=== PATIENT | female | born 1975 | race Caucasian/White ===

== ENCOUNTER 2023-04-05 11:54 | Day surgery (SDC) | payer OTHER ==
[~2023-04-05] VITALS: Ht 157.5 cm; Wt 69.1 kg
[~2023-04-05 11:54] MED LIST: LATISSE3 ML TOP; LEVOTHYROXINE50 MC1 PO; MULTI VITAMIN1 EACH PO; OMEPRAZOLE20 MG PO; TRAMADOL HCL50 MG PO; VENTOLIN HFA18 GM INH; VITAMIN D250000 UNIT PO
[2023-04-05 12:16] VITALS: BP 134/56
[2023-04-05 14:36] VITALS: BP 121/72
--- NOTE | 2023-04-05 14:40 | NUR ---
04/05/23 1440 Amber Hayes PATIENT ARRIVES IN PACU AWAKE, ALERT AND TALKING. DR MCCOLLUM PRESENTS TO THE BEDSIDE AND PATIENT'S QUESTIONS ARE ANSWERED. DISCHARGE INSTRUCTIONS ARE VERBALLY REVIEWED. PATIENT SITS AT THE EDGE OF THE BED AND DENIES DIZZINESS. SHE IS GETTING DRESSED BEHIND THE CURTAIN.
--- NOTE | 2023-04-05 18:49 | OR ---
[facility] [address] [place], [place] [address] Signed DATE OF OPERATION: 04/05/2023 SURGEON: Sergio Mccollum MD PREOPERATIVE DIAGNOSES: 1. Substernal burning pain consistent with gastroesophageal reflux. 2. Spontaneous regurgitation. POSTOPERATIVE DIAGNOSES: Hiatal hernia with distal esophagitis. PROCEDURE: Esophagogastroduodenoscopy with biopsy. ANESTHESIA: Intravenous sedation; fentanyl 100 mcg and Versed 8 mg. INDICATION: This 47-year-old white woman is a patient of MARY Dillon. She has symptoms of substernal burning pain episodically. She is taking PPI medication, omeprazole. She has no hematemesis or actual dysphagia, though does have slow swallowing to bread and meat sometimes. She is admitted at this time to undergo upper endoscopy to better characterize the problem,. She understands the risk of bleeding, infection, and perforation. FINDINGS: Mild distal esophagitis was noted. Hiatal hernia was quite clearly obvious. The stomach and duodenum were normal. CLOtest was negative 15 minutes post procedure. DESCRIPTION OF PROCEDURE: The patient was brought to the endoscopy suite and placed in the lateral decubitus position, given intravenous sedation to the point of slurred speech and nystagmus. Full cardiopulmonary monitoring was maintained. She had undergone lidocaine hypopharyngeal anesthesia. Olympus video upper endoscope was passed in the hypopharynx. The vocal cords were normal. Scope was advanced into the esophagus without problem. Throughout its length, it was normal except in the distal portion where there was mild inflammatory change but no Alnier's epithelium, stricture or neoplasm. Scope was advanced to the stomach which was insufflated with air. Rugal folds were normal. There was a fair amount of salivary Electronically Signed By: SERGIO MCCOLLUM MD 04/05/23 1849 PATIENT NAME: SARABJIT VANN OPERATIVE REPORT DATE OF : 77 REPORT #: [id number] PHYSICIAN: SERGIO MCCOLLUM MD PCP: REN FLEMING PAC REPORT IS CONFIDENTIAL AND NOT TO BE RELEASED WITHOUT AUTHORIZATION [facility] [address] [place], [place] [address] Signed secretions. The antrum was normal as was the pylorus. The scope was passed into the duodenal which was normal. Biopsies were then taken of the duodenum. The scope was withdrawn and biopsies taken of the antrum for both SANTI and pathologic testing. Further withdrawal of scope in retroflexed position showed obvious hiatal hernia. The flap valve was easily effaced entirely. The scope was straightened and withdrawn and biopsies taken of the distal esophageal mucosa. Further withdrawal allowed for biopsies of mid esophagus. Scope was removed and the patient was taken to the recovery room in good condition. CONCLUDING DIAGNOSIS: Hiatal hernia with associated gastroesophageal reflux incompletely managed by reflux medication with associated spontaneous regurgitation. PLAN: Continue PPI medication at this time. We will organize for video esophagram to grossly distinguish dysmotility problems. She would be a candidate for anti-reflux surgery. We will see her back in the office after upper gastrointestinal imaging study is completed. MD MIKE Fortune/AYLA /[id number] cc: MARY Dillon Copies: ~ Electronically Signed By: SERGIO MCCOLLUM MD 04/05/23 1849 PATIENT NAME: SARABJIT VANN OPERATIVE REPORT DATE OF : 77 REPORT #: [id number] PHYSICIAN: SERGIO MCCOLLUM MD PCP: REN FLEMING PAC REPORT IS CONFIDENTIAL AND NOT TO BE RELEASED WITHOUT AUTHORIZATION
--- NOTE | 2023-04-08 15:58 | PATH ---
[facility] [address] [place], [place] [address] Signed SPECIMEN(S): A DUODENAL BIOPSY SPECIMEN(S): B ANTRUM/PYLORUS BIOPSY SPECIMEN(S): C LOWER ESOPHAGEAL BIOPSY SPECIMEN(S): D MIDDLE ESOPHAGEAL BIOPSY SPECIMEN SOURCE: A. DUODENAL BIOPSY B. ANTRUM/PYLORUS BIOPSY C. LOWER ESOPHAGEAL BIOPSY D. MIDDLE ESOPHAGEAL BIOPSY CLINICAL HISTORY: EGD. Hiatal hernia; reflux; epigastric pain FINAL PATHOLOGIC DIAGNOSIS: A. Duodenal biopsy: - Benign duodenal mucosa, negative for specific diagnostic abnormality. B. Antrum/pylorus biopsy - Benign gastric-type mucosa with focal slight chronic inflammation, negative for evidence of Helicobacter organisms on routine HE-stained sections. C. Lower esophageal biopsy: - Benign esophageal mucosa, negative for increased epithelial eosinophils. - Negative for glandular mucosa. D. Middle esophageal biopsy: - Benign esophageal mucosa, negative for increased epithelial eosinophils. JVR:jason MICROSCOPIC EXAMINATION: Histologic sections of all submitted blocks are examined by light microscopy. These findings, together with the gross examination, support the pathologic diagnosis. GROSS DESCRIPTION: A. The specimen, labeled and designated "King Rory, duodenal biopsy," is received in formalin and consists of two fragments of soft lawton tissue that are up to 0.5 cm in greatest dimension. Entirely submitted in (A1). B. The specimen, labeled and designated "King Rory, antrum/pylorus biopsy," is received in formalin and consists of one fragment of soft lawton tissue that is up to 0.5 cm in greatest dimension. Entirely submitted in (B1). PATIENT NAME: SARABJIT VANN PATHOLOGY DATE OF : 77 REPORT #: [id number] PHYSICIAN: PAIGE PIRES PCP: REN FLEMING PAC REPORT IS CONFIDENTIAL AND NOT TO BE RELEASED WITHOUT AUTHORIZATION [facility] [address] [place], [place] [address] Signed C. The specimen, labeled and designated "King Rory, lower esophageal biopsies," is received in formalin and consists of two fragments of soft lawton tissue that are up to 0.8 cm in greatest dimension. Entirely submitted in (C1). D. The specimen, labeled and designated "King Rory, mid esophageal biopsy," is received in formalin and consists of one fragment of soft lawton tissue that is up to 0.3 cm in greatest dimension. Entirely submitted in (D1). TW (under the direct supervision of a pathologist) The Gross Description was prepared using a voice recognition system. The report was reviewed for accuracy; however, sound-alike word errors, addition and/or deletions may occur. If there is any question about this report, please contact Client Services. PERFORMING LABORATORY: Technical component was performed by [facility], [address] [place] [id number] (CLIA# [id number]). Professional interpretation was performed by [facility], [address] [place] [phone] (CLIA#: [id number]). Diagnostician: Devon Kapadia MD Pathologist Electronically Signed 04/08/2023 Copies: ~ PATIENT NAME: SARABJIT VANN PATHOLOGY DATE OF : 77 REPORT #: [id number] PHYSICIAN: PAIGE PATHOLOGY PCP: REN FLEMING PAC REPORT IS CONFIDENTIAL AND NOT TO BE RELEASED WITHOUT AUTHORIZATION
== END 2023-04-05 14:45 | disposition home or self-care (01) ==
LOC: OPS 11:54 → DS 11:54 → OPS 13:00
PROVIDERS: ATTEND Surgery
PROC: 0DB68ZX Excision of Stomach, Via Natural or Artificial Opening Endoscopic, Diagnostic (ICD-10-PCS; 2023-04-05)
PROC: 0DB38ZX Excision of Lower Esophagus, Via Natural or Artificial Opening Endoscopic, Diagnostic (ICD-10-PCS; principal; 2023-04-05 13:00)
DX: K21.00 Gastro-esophageal reflux disease with esophagitis, without bleeding (principal); K44.9 Diaphragmatic hernia without obstruction or gangrene; E03.9 Hypothyroidism, unspecified; Z98.82 Breast implant status
CPT/HCPCS: 84703; 99153; G0500; J2250; J3010; J7121

== ENCOUNTER 2024-06-25 06:53 | Emergency (ER) | payer OTHER ==
[~2024-06-25] VITALS: Ht 157.5 cm; Wt 68.1 kg
[2024-06-25 07:13] LABS: BASOPHILS 0.6 % (0-2); HEMATOCRIT 36.8 % (35.0-50.0); HEMOGLOBIN 12.7 g/dL (12.0-18.0); LYMPHOCYTES 22.8 % (24-44); MCH 32.1 (27-36); MCHC 34.6 g/dl (30-36); MCV 92.7 fl (81-99); MONOCYTES 8.3 % (0-12); NEUTROPHILS 66.3 % (39-80); PLATELET COUNT 312 K/uL (140-440); RBC 3.97 M/ul (4.3-5.7); RDW 13.2 (10.5-15.0)
[2024-06-25] MEDS ORDERED: ondansetron HCL 4 MG/2 ML VIAL IV ONE (07:15)
[2024-06-25 07:25] LABS: ALBUMIN/GLOBULIN RATIO 1.21 (1.1-2.4); ANION GAP 14.1 (7-21); BILIRUBIN, TOTAL 0.4 mg/dL (0.2-1.0); BUN/CREATININE RATIO 15.18 (6.0-28.6); CALCIUM 10.3 mg/dL (8.5-10.1); CREATININE, SERUM 0.79 mg/dL (0.55-1.02); POTASSIUM 4.1 mmol/L (3.5-5.1); PROTEIN, TOTAL 7.3 g/dL (6.4-8.2)
[2024-06-25 07:44] LABS: BILIRUBIN, URINE NEGATIVE (negative); BLOOD/HGB, URINE NEGATIVE (Negative); KETONE, URINE TRACE (Negative); LEUK ESTERASE, URINE NEGATIVE (negative); NITRITE, URINE NEGATIVE (negative); PH, URINE 7.5 (5-7)
[2024-06-25] MEDS ORDERED: SODIUM CHLORIDE 0.9% 1,000 ML IV PRN (08:00)
[2024-06-25] MEDS ORDERED: HYDROmorphone HCL 1 MG/ML SYR IV ONE ×2 (08:00→09:30)
[2024-06-25] MEDS ORDERED: PANTOPRAZOLE SODIUM 40 MG/10 ML VIAL IV ONE (09:00)
[2024-06-25] MEDS ORDERED: FAMOTIDINE 20 MG/ 2 ML VIAL IV ONE (09:00)
[2024-06-25] MEDS ORDERED: PEPCID20 MG PO (10:13)
[2024-06-25] MEDS ORDERED: HYDROCODON-ACE1 EAC8 PO (10:13)
[2024-06-25] MEDS ORDERED: CARAFATE1 GM PO (10:13)
[2024-06-25 10:30] VITALS: BP 126/68
--- NOTE | 2024-06-26 12:13 | EKG ---
[facility] [address] [facility] [place], [place] [address] Signed Normal sinus rhythm Normal ECG Confirmed by Darci Gilbert DO ([id number]) on 06/26/2024 12:13:35 PM Electronically Signed By: DARCI GILBERT DO 06/26/24 1213 PATIENT NAME: KING SAMSARABJITMark CONNOR Electrocardiogram DATE OF : 77 PHYSICIAN: DARCI GILBERT DO REPORT #: [id number] REPORT IS CONFIDENTIAL AND NOT TO BE RELEASED WITHOUT AUTHORIZATION
== END 2024-06-25 10:30 | disposition home or self-care (01) ==
LOC: ED 06:53
PROVIDERS: Emergency Medicine
DX: K29.70 Gastritis, unspecified, without bleeding (principal); J45.909 Unspecified asthma, uncomplicated; Z88.8 Allergy status to other drugs, medicaments and biological substances; Z79.899 Other long term (current) drug therapy
CPT/HCPCS: 36415; 74177; 76705; 80053; 81003; 83690; 84703; 85025; 93005; 93010; 96375; 96376; 99284-25; J1171; J2405; J2470; J7030; Q9967

== ENCOUNTER 2024-12-10 13:12 | Day surgery (SDC) | payer OTHER ==
[~2024-12-10] VITALS: Ht 157.5 cm; Wt 65.5 kg
[~2024-12-10 13:12] MED LIST changes: +CARAFATE1 GM PO; +HYDROCODON-ACE1 EAC8 PO; +IBLOOD GLUCOSE TEST STRIP 1 EA TEST VI PRN; +LACTATED RINGER'S 1,000 ML IV SCH; +LIDOCAINE HCL 1% 5 ML SDV INJ ONE; +MIDAZOLAM HCL 5 MG/5 ML VIAL IV PRN; +PEPCID20 MG PO; +fentaNYL citrate 100 MCG/2 ML VIAL IV PRN
[2024-12-10 13:32] VITALS: BP 131/76
[2024-12-10] MEDS ORDERED: MIDAZOLAM HCL 5 MG/5 ML VIAL ONE (13:59)
[2024-12-10] MEDS ORDERED: fentaNYL citrate 100 MCG/2 ML VIAL ONE (13:59)
[2024-12-10] MEDS ORDERED: MIDAZOLAM HCL 2 MG/2 ML VIAL ONE ×2 (14:14→14:19)
--- NOTE | 2024-12-10 14:36 | NUR ---
12/10/24 1436 Nga Stevenson 1431: PT ARRIVES TO PACU AWAKE AND VISITING WITH STAFF.
[2024-12-10 14:51] VITALS: BP 123/81
--- NOTE | 2024-12-11 11:41 | OR ---
[facility] [address] [place], [place] [address] Signed DATE OF OPERATION: 12/10/2024 SURGEON: Sergio Mccollum MD PREOPERATIVE DIAGNOSES: Persistent episodic severe upper abdominal pain. Negative ultrasound and CCK-HIDA test pending. POSTOPERATIVE DIAGNOSIS: Normal-appearing esophagus, stomach and duodenum, flap valve good. PROCEDURE: Esophagogastroduodenoscopy with biopsy. ANESTHESIA: Intravenous sedation fentanyl 100 mcg and Versed 7 mg. INDICATION: This 49-year-old white woman is a patient of MARY Dillon. She has had episodes of upper abdominal pain that are not well localized but severe enough to require emergency room evaluation on June 19, which include an ultrasound of the abdomen and a CT scan, both of which were normal as regards to gallbladder which did show 4.5 cm left adnexal cyst and 1.6 cm benign-appearing left adrenal nodule. The patient has been on PPI medication 40 mg daily of Protonix and Carafate episodically which may or may not have been beneficial to her. She has lost 17 pounds in the meantime of her symptoms. She did undergo upper endoscopy on April 05, 2023 confirming findings of a small hiatal hernia and she was considered to have episodic spontaneous regurgitation at that time. Consideration of operative management for reflux disease had been made at that time. The patient is now to undergo upper endoscopy to better characterize her current symptoms and to affirm or refute the fact that they are peptic in nature. She does have a CCK-HIDA test scheduled for tomorrow. FINDINGS: There is no obvious hiatal hernia though the flap valve was somewhat loose. There is certainly no esophagitis, Lanier's epithelium, gastritis or duodenitis or erosion or ulcer. CLOtest was negative 20 minutes postprocedure. DESCRIPTION OF PROCEDURE: Electronically Signed By: SERGIO MCCOLLUM MD 12/11/24 1141 PATIENT NAME: SARABJIT VANN OPERATIVE REPORT DATE OF : 77 REPORT #: [id number] PHYSICIAN: SERGIO MCCOLLUM MD PCP: BERNADETTE FLEMING PAC REPORT IS CONFIDENTIAL AND NOT TO BE RELEASED WITHOUT AUTHORIZATION [facility] [address] [place], [place] [address] Signed The patient was brought to the endoscopy suite and placed in lateral decubitus position after undergoing topical lidocaine hypopharyngeal anesthesia. She was given intravenous sedation with full cardiopulmonary monitoring to point of slurred speech and nystagmus. An Olympus video upper endoscope was passed in the hypopharynx, easily passed in the esophagus. Esophagus throughout its length was normal. The scope was advanced to the stomach which was insufflated with air. Rugal folds were normal. There was no sign of inflammation, erosion or ulcer. Prepyloric area was essentially normal. Scope was passed through the pylorus into the duodenum, which was normal. Biopsies taken there to assess for celiac disease. Scope was withdrawn. A biopsy was then taken of the antrum for both SANTI and pathologic testing. Withdrawal of scope and retroflexed view showed the flap valve to be largely intact. Certainly, no sign of large hiatal hernia. Scope was withdrawn to the distal esophagus which was found to be normal and biopsied as well. Careful withdrawal showed no other findings. Of note, the scope was removed. The patient was taken to recovery room in good condition. CONCLUDING DIAGNOSIS: Previously described to have a reflux issue in 2023 (March). Most recent upper endoscopy shows no evidence of esophagitis or even a hiatal hernia to any great extent. Stomach and duodenum were normal. CLOtest was negative. It will be notable as results show on the CCK-HIDA test planned for tomorrow. We will see her back in the office in a month or so and assess her progress. In the meantime, she will continue the Protonix 40 mg daily. If she should have an abnormal CCK-HIDA test, we will see her sooner anticipating possible need for cholecystectomy. She will return additionally to the ongoing care of Bernadette Fleming. MD MIKE Fortune/AYLA /[id number] cc: Bernadette Fleming PA-C Electronically Signed By: SERGIO MCCOLLUM MD 12/11/24 1141 PATIENT NAME: SARABJIT VANN OPERATIVE REPORT DATE OF : 77 REPORT #: [id number] PHYSICIAN: SERGOI MCCOLLUM MD PCP: BERNADETTE FLEMING PAC REPORT IS CONFIDENTIAL AND NOT TO BE RELEASED WITHOUT AUTHORIZATION [facility] [address] [place] [id number] Signed Copies: ~ Electronically Signed By: SERGIO MCCOLLUM MD 12/11/24 1141 PATIENT NAME: SARABJIT VANN OPERATIVE REPORT DATE OF : [birth year] REPORT #: [id number] PHYSICIAN: SERGIO MCCOLLUM MD PCP: BERNADETTE FLEMING PAC REPORT IS CONFIDENTIAL AND NOT TO BE RELEASED WITHOUT AUTHORIZATION
--- NOTE | 2024-12-12 10:28 | PATH ---
[facility] [address] [place], [place] [address] Signed SPECIMEN(S): A DUODENAL BIOPSY SPECIMEN(S): B ANTRUM BIOPSY SPECIMEN(S): C DISTAL ESOPHAGEAL BIOPSY SPECIMEN SOURCE: A. DUODENAL BIOPSY B. ANTRUM BIOPSY C. DISTAL ESOPHAGEAL BIOPSY CLINICAL HISTORY: Pre-GERD and abdominal pain. Post-normal EGD A-C) biopsy FINAL PATHOLOGIC DIAGNOSIS: A. Duodenum, biopsy: - Duodenal mucosa with intact villous architecture. - Negative for intraepithelial lymphocytosis, parasites or malignancy. B. Antrum, biopsy: - Antral mucosa with no significant histopathologic changes. - Negative for Helicobacter pylori. - Negative for intestinal metaplasia, dysplasia or malignancy. C. Distal esophagus, biopsies: - Fragments of superficial squamous mucosa with no significant histopathologic changes. - Negative for eosinophilic esophagitis, dysplasia or malignancy. DWS:clv MICROSCOPIC EXAMINATION: Histologic sections of all submitted blocks are examined by light microscopy. These findings, together with the gross examination, support the pathologic diagnosis. GROSS DESCRIPTION: A. The specimen, labeled and designated ", duodenal biopsy," is received in formalin and consists of two lawton soft tissue fragments, ranging from 0.4-0.5 cm. Entirely submitted in (A1). B. The specimen, labeled and designated ", antrum biopsy," is received in formalin and consists of two lawton soft tissue fragments, ranging from 0.3-0.6 cm. Entirely submitted in (B1). C. The specimen, labeled and designated ", distal esophageal biopsy," is received in formalin and consists of three lawton soft tissue fragments, ranging PATIENT NAME: SARABJIT VANN PATHOLOGY DATE OF : 77 REPORT #: [id number] PHYSICIAN: PAIGE PATHOLOGY PCP: REN FLEMING PAC REPORT IS CONFIDENTIAL AND NOT TO BE RELEASED WITHOUT AUTHORIZATION [facility] [address] [place], [place] [address] Signed from 0.3-0.5 cm. Entirely submitted in (C1). AB (under the direct supervision of a pathologist) The Gross Description was prepared using a voice recognition system. The report was reviewed for accuracy; however, sound-alike word errors, addition and/or deletions may occur. If there is any question about this report, please contact Client Services. PERFORMING LABORATORY: Technical component was performed by [facility], [address] [place] [id number] (CLIA# [id number]). Professional interpretation was performed by [facility], [address] [place] [id number] (CLIA#: [id number]). Diagnostician: Jhonathan Gabriel MD Pathologist Electronically Signed 12/12/2024 Copies: ~ PATIENT NAME: SARABJIT VANN PATHOLOGY DATE OF : 77 REPORT #: [id number] PHYSICIAN: PAIGE PATHOLOGY PCP: REN FLEMING PAC REPORT IS CONFIDENTIAL AND NOT TO BE RELEASED WITHOUT AUTHORIZATION
== END 2024-12-10 15:15 | disposition home or self-care (01) ==
LOC: DS 13:12
PROVIDERS: ATTEND Surgery
PROC: 0DB68ZX Excision of Stomach, Via Natural or Artificial Opening Endoscopic, Diagnostic (ICD-10-PCS; principal; 2024-12-10 14:00)
DX: R10.10 Upper abdominal pain, unspecified (principal); K21.9 Gastro-esophageal reflux disease without esophagitis; R07.2 Precordial pain; Z98.890 Other specified postprocedural states
CPT/HCPCS: 84703; 99153; G0500; J2250; J2405; J3010; J7121